=== PATIENT | female | born 1950 | race African-American/Black ===

== ENCOUNTER → 2021-07-30 08:59 | Outpatient (BNVA) | payer MEDICARE, MEDICAID, SELFPAY | PROVIDERS: PCP Internal Medicine; Visit Provider Nurse Practitioner Family | DX: G47.33 Obstructive sleep apnea (adult) (pediatric) (principal); R09.02 Hypoxemia | CPT/HCPCS: 99212 ==

== ENCOUNTER → 2021-11-16 19:30 | Outpatient (REF) | payer MEDICARE, MEDICAID, SELFPAY | LOC: HO.SL 19:30 | PROVIDERS: PCP Internal Medicine; Visit Provider Nurse Practitioner Family | DX: G47.33 Obstructive sleep apnea (adult) (pediatric) (principal) | CPT/HCPCS: 95811 ==

== ENCOUNTER → 2022-01-24 12:26 | Outpatient (REF) | payer MEDICARE, MEDICAID, SELFPAY ==
--- NOTE | 2022-01-24 12:31 | CA_ITS ---
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 The calculated ejection fraction is 57% by biplane method. - There is mild calcification of the aortic valve. - No obvious valvular pathology seen on this study. Findings Left Ventricle Normal left ventricular cavity size. There is normal left ventricular wall thickness. The left ventricular systolic function is normal. The calculated ejection fraction is 57% by biplane method. There is no evidence of regional wall motion abnormalities. E/E prime ratio is between 8 and 15 consistent with indeterminate filling pressures. Evidence suggests grade I (mild) diastolic dysfunction. LV peak GLS -16.8%, but possibly underestimated. Right Ventricle Normal right ventricular cavity size and systolic function. Atria Both atria are normal in size. Aortic Valve There is a normal trileaflet aortic valve. There is mild calcification of the aortic valve. There is no aortic valve stenosis. There is no aortic valve regurgitation. Mitral Valve The mitral valve appears normal. There is no mitral valve regurgitation. There is no mitral valve stenosis. Pulmonic Valve The pulmonic valve is likely normal. Tricuspid Valve Normal tricuspid valve structure. There is trace tricuspid valve regurgitation. The pulmonary artery systolic pressure is normal. Great Vessels The aortic annulus, sinuses of valsalva, asc aorta, and aortic arch are normal in size. Small plaque is seen in the sino tubular ridge. Venous The inferior vena cava is normal in size and collapses greater than 50% with inspiration. Pericardium/Pleural There is a trivial pericardial effusion. Prior Study Comparison No prior study available for comparison. Recommendations, Care & Conclusions No obvious valvular pathology seen on this study. Measurements 2D Linear Measurements IVSd: 1.02 0.6-0.9/0.6-1.0 cm LVIDd: 5.23 3.9-5.3/4.2-5.9 cm LVIDd Index: 2.58 2.4-3.2/2.2-3.1 cm/m2 LVIDs: 3.45 2.0-3.6 cm LVPWd: 0.94 0.7-1.1 cm LA Diam: 3.60 2.7-3.8/3.0-4.0 cm LAIDs Index: 1.77 1.5-2.3 cm/m2 LV Mass: 238.11 67-162/88-224 g LV Mass Index: 117.29 43-95/49-115 g/m2 LVOT Diam: 2.00 3.0+(-)1.3 cm 2D Systolic Function EF 4C: 53.40 >55% EF 2C: 59.50 >55% EF BiP: 56.80 >55% Mitral Valve MV Pk E: 0.96 MV PK A: 1.14 MV Decel Time: 185.00 E/A: 0.80 E'Lateral: 7.94 E'Medial: 5.22 E/E' Med: 18.40 E/E' Lat: 12.10 PHT: 54.00 MVA PHT: 4.07 Decel Ravalli: 5.18 Aortic Valve AoV Pk Aram: 1.63 AoV Mn Aram: 1.07 AoV VTI: 0.39 AoV Pk Grad: 11.00 Aov Mn Grad: 5.00 KISHA Cont.VTI: 2.54 LVOT LVOT Pk Aram: 1.32 LVOT Mn Aram: 0.84 LVOT VTI: 0.31 LVOT Pk Grad: 7.00 LVOT Mn Grad: 3.00 LVOT Diam: 2.00 LVOT Area: 3.14 Diastolic Function MV Pk E: 0.96 MV Pk A: 1.14 E/A: 0.80 E'Medial: 5.22 E/E' Med: 18.40 E' Laterial: 7.94 E/E' Lat: 12.10 Right Ventricle TAPSE (mm): 24.90 TVS' Aram: 13.10 Tricuspid Valve RA Press: 3.00 Great Vessels Aorta Sinus of Valsalva: 2.80 2.0-3.5 cm Ao Asc: 3.20 2.1-3.4 cm Ao Arch: 3.10 Pulmonary Veins Pulm Vein S/D 1.70 Pulmonary Valve PV Pk Aram: 0.82 Peak PV Grad: 3.00 Updated in Other Vendor System with Status of Final Eugene Kern MD electronically signed on 01/24/2022 4:33:07 PM with status of Final
== END ==
LOC: HO.CARD 12:26
PROVIDERS: PCP Internal Medicine; Visit Provider Nurse Practitioner Family
DX: I10 Essential (primary) hypertension (principal); J44.9 Chronic obstructive pulmonary disease, unspecified; R09.02 Hypoxemia; G47.33 Obstructive sleep apnea (adult) (pediatric)
CPT/HCPCS: 93306; 93356

== ENCOUNTER → 2022-03-09 19:30 | Outpatient (REF) | payer MEDICARE, MEDICAID, SELFPAY | LOC: HO.SL 19:30 | PROVIDERS: PCP Internal Medicine; Visit Provider Nurse Practitioner Family | DX: G47.33 Obstructive sleep apnea (adult) (pediatric) (principal); R09.02 Hypoxemia; Z79.899 Other long term (current) drug therapy | CPT/HCPCS: 95811 ==

== ENCOUNTER → 2022-03-23 08:57 | Outpatient (BNVA) | payer MEDICARE, MEDICAID, SELFPAY | PROVIDERS: PCP Internal Medicine; Visit Provider Nurse Practitioner Family | DX: R09.02 Hypoxemia (principal); G47.33 Obstructive sleep apnea (adult) (pediatric); J44.9 Chronic obstructive pulmonary disease, unspecified | CPT/HCPCS: 99212 ==

== ENCOUNTER → 2022-06-07 19:30 | Outpatient (REF) | payer MEDICARE, MEDICAID, SELFPAY | LOC: HO.SL 19:30 | PROVIDERS: Visit Provider Nurse Practitioner Family | DX: G47.33 Obstructive sleep apnea (adult) (pediatric) (principal); R09.02 Hypoxemia | CPT/HCPCS: 95810 ==

== ENCOUNTER → 2022-06-30 09:34 | Outpatient (BNVA) | payer MEDICARE, MEDICAID, SELFPAY | PROVIDERS: PCP Internal Medicine; Visit Provider Nurse Practitioner Family | DX: R09.02 Hypoxemia (principal); G47.30 Sleep apnea, unspecified | CPT/HCPCS: 99212 ==

== ENCOUNTER → 2022-09-30 09:09 | Outpatient (BNVA) | payer MEDICARE, MEDICAID, SELFPAY | PROVIDERS: PCP Internal Medicine; Visit Provider Nurse Practitioner Family | DX: R09.02 Hypoxemia (principal); G47.30 Sleep apnea, unspecified | CPT/HCPCS: 99212 ==

== ENCOUNTER 2023-11-29 07:25 | Outpatient (AMB) | payer MEDICARE, MEDICAID, SELFPAY ==
--- NOTE | 2023-11-29 07:38 | A.OFFVIS_ITS ---
Vital Signs 11/29/23 07:40 Height 5 ft 7 in Weight 196 lb 8 oz BMI 30.8 Intake Visit Reasons: 1yr follow up sleep - Confirmed Intake Note: Patient presents for 1 year follow up. Allergies caffeine Allergy (Mild, Verified 06/30/22 09:51) unknown lactose Allergy (Mild, Verified 06/30/22 09:51) unknown lisinopril Allergy (Mild, Verified 06/30/22 09:51) unknown HPI Comments Details: 73 y/o female patient presents with [facility] staff for follow up of DANNI on CPAP. Pt had a repeat sleep study done on 06/07/22. The PSG sleep study result was significant for moderate degree of central sleep apnea. The AHI was 24/hr and oxygen mahsa was 78%. ASV at 10 with EPAP at 4, Max PS 15 and Min PS at 5 ordered. However, ASV was denied and she is on APAP [id number]. The CPAP compliance and therapy response (09/02-12/03) 90 days reviewed. Pt is on APAP [id number] with supplement O2 2L. Usage days 97% and average usage hours 9 hours The median pressure is 15 and the residual AHI was 3.3 Leak 6.5 She sleeps well with the CPAP, and has more alert during daytime. She goes to day program 9 am to 3 pm. [facility] Medical History Mental disability COPD (chronic obstructive pulmonary disease) HTN (hypertension) Surgical History H/O eye surgery Social History Household Members Other:: [facility] Housing: House Alcohol intake: never Patient Tobacco Use Status: Former Tobacco user Review of Systems Neuro Reports Abnormal speech present Physical Exam Vital Signs: BMI result Body Mass Index 30.8 Const General: cooperative Orientation/consciousness: oriented to person and oriented to place HEENT Head: Yes normocephalic Face and sinus: Yes other (face asymmetric, right side droop. ) Eyes Eyelids: Yes other (right eye lid droop) Neck Neck: Yes full ROM Resp Effort & Inspection: other (Uses continuous O2 supplement 1-2L NC) Neuro General: oriented to person and oriented to place Cranial nerves: Yes Other cranial nerve findings present (Right facial weakness) Speech: Abnormal speech present slurred Motor exam (neuro): 5/5 motor strength present throughout Assessment & Plan Assessment & Plan (1) Hypoxemia: Comment: COPD, centrilobular emphysema, former smoker, on continous O2 supplement. Code(s): R09.02 - Hypoxemia Category: Medical (2) Sleep apnea: Comment: Repeat sleep study result was moderate degree of central sleep apnea. The AHI was 24/hr and oxygen mahsa was 78%. Code(s): G47.30 - Sleep apnea, unspecified Category: Medical Plan Continue to use APAP [id number] with supplement O2 as patient experiences good clinical effects. Stressed compliance, use nightly and more than 4 hours. UNCLEAR WHY THE [facility] WANTS HER CPAP BACK. PAtient has good clinical response and is compliant . Uisng CPAP nightly has improved her night sleep and daytime functioning. Coding Level of Care Code Est Pt Level 4 (75543) Diagnoses Hypoxemia R09.02 Sleep apnea G47.30
[2023-11-29 07:40] VITALS: BMI 30.8
== END 2023-11-29 08:03 | disposition home or self-care (01) ==
PROVIDERS: Visit Provider Psychiatry & Neurology Neurology
DX: R09.02 Hypoxemia (principal); G47.30 Sleep apnea, unspecified
CPT/HCPCS: 99214

== ENCOUNTER → 2023-11-29 07:25 | Outpatient (BNVA) | payer MEDICARE, MEDICAID, SELFPAY | PROVIDERS: Visit Provider Psychiatry & Neurology Neurology | DX: R09.02 Hypoxemia (principal); G47.30 Sleep apnea, unspecified | CPT/HCPCS: 99212 ==

== ENCOUNTER → 2024-02-28 09:38 | Outpatient (REF) | payer MEDICARE, MEDICAID, SELFPAY | LOC: HO.SL 09:38 | PROVIDERS: PCP Internal Medicine; Visit Provider Psychiatry & Neurology Neurology | DX: G47.30 Sleep apnea, unspecified (principal); G47.33 Obstructive sleep apnea (adult) (pediatric) | CPT/HCPCS: 95806 ==

== ENCOUNTER → 2024-02-28 09:55 | Outpatient (BNV) | payer MEDICARE, MEDICAID, SELFPAY | PROVIDERS: PCP Internal Medicine; Visit Provider Psychiatry & Neurology Neurology | DX: G47.33 Obstructive sleep apnea (adult) (pediatric) (principal) | CPT/HCPCS: 95806 ==

== ENCOUNTER → 2024-03-27 19:30 | Outpatient (REF) | payer MEDICARE, MEDICAID, SELFPAY | LOC: HO.SL 19:30 | PROVIDERS: PCP Internal Medicine; Visit Provider Psychiatry & Neurology Neurology | DX: G47.30 Sleep apnea, unspecified (principal) | CPT/HCPCS: 95811 ==

== ENCOUNTER → 2024-03-27 21:40 | Outpatient (BNV) | payer MEDICARE, MEDICAID, SELFPAY | PROVIDERS: PCP Internal Medicine; Visit Provider Psychiatry & Neurology Neurology | DX: G47.33 Obstructive sleep apnea (adult) (pediatric) (principal) | CPT/HCPCS: 95811 ==

== ENCOUNTER 2024-11-25 08:42 | Outpatient (AMB) | payer MEDICARE, MEDICAID, SELFPAY ==
--- NOTE | 2024-11-25 08:44 | MHC.OFFVIS ---
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 Pt had a repeat sleep study done on 06/07/22. The PSG sleep study result was significant for moderate degree of central sleep apnea. The AHI was 24/hr and oxygen mahsa was 78%. she is on APAP [id number]. The CPAP compliance and therapy response (09/03-12/04) 90 days reviewed. Pt is on APAP [id number] Usage days 88% and average usage hours 9 hours The median pressure is 12 and the residual AHI was 4 Leak 34 She sleeps well with the CPAP, and has more alert during daytime. She goes to day program 9 am to 3 pm. [facility] Medical History Mental disability COPD (chronic obstructive pulmonary disease) HTN (hypertension) Surgical History H/O thyroidectomy H/O eye surgery Social History Household Members Other:: [facility] Housing: House Alcohol intake: never Patient Tobacco Use Status: Former Tobacco user Review of Systems Neuro Reports Abnormal speech present Physical Exam Vital Signs: Last Vital Signs Pulse 61 11/25/24 08:45 BP 120/72 11/25/24 08:45 Pulse Ox 100 11/25/24 08:45 Oxygen Delivery Method Room Air 11/25/24 08:45 BMI result Body Mass Index 31.2 Const General: cooperative Orientation/consciousness: oriented to person and oriented to place HEENT Head: Yes normocephalic Face and sinus: Yes other (face asymmetric, right side droop. ) Eyes Eyelids: Yes other (right eye lid droop) Neck Neck: Yes full ROM Resp Effort & Inspection: other (Uses continuous O2 supplement 1-2L NC) Neuro General: oriented to person and oriented to place Cranial nerves: Yes Other cranial nerve findings present (Right facial weakness) Speech: Abnormal speech present slurred Motor exam (neuro): 5/5 motor strength present throughout Assessment & Plan Assessment & Plan (1) Hypoxemia: Comment: COPD, centrilobular emphysema, former smoker, on continous O2 supplement. Code(s): R09.02 - Hypoxemia Category: Medical (2) Sleep apnea: Comment: Repeat sleep study result was moderate degree of central sleep apnea. The AHI was 24/hr and oxygen mahsa was 78%. Code(s): G47.30 - Sleep apnea, unspecified Category: Medical Qualifiers: Sleep apnea type: obstructive Qualified Code(s): G47.33 - Obstructive sleep apnea (adult) (pediatric) Plan Continue to use APAP [id number] Stressed compliance, use nightly and more than 4 hours. PAtient has good clinical response and is compliant . Uisng CPAP nightly has improved her night sleep and daytime functioning. Coding Level of Care Code Est Pt Level 4 (26216) Diagnoses Hypoxemia R09.02 Obstructive sleep apnea syndrome G47.33 Sleep apnea type: obstructive
[2024-11-25 08:45] VITALS: BP 120/72; PULSE 61; O2SAT 100; BMI 31.2
== END 2024-11-25 09:07 | disposition home or self-care (01) ==
LOC: HO.HSMS 08:43
PROVIDERS: PCP Internal Medicine; Visit Provider Psychiatry & Neurology Neurology
DX: R09.02 Hypoxemia (principal); G47.33 Obstructive sleep apnea (adult) (pediatric)
CPT/HCPCS: 99214

== ENCOUNTER → 2024-11-25 08:42 | Outpatient (BNVA) | payer MEDICARE, MEDICAID, SELFPAY | PROVIDERS: PCP Internal Medicine; Visit Provider Psychiatry & Neurology Neurology | DX: R09.02 Hypoxemia (principal); G47.33 Obstructive sleep apnea (adult) (pediatric) | CPT/HCPCS: 99212 ==